=== PATIENT | female | born 1975 | race Caucasian/White ===

== ENCOUNTER → 2017-11-25 | Outpatient (REF) | payer BC, OTHER | LOC: M LAB REF 19:45 | DX: J11.1 Influenza due to unidentified influenza virus with other respiratory manifestations (principal) | CPT/HCPCS: 87804 ==

== ENCOUNTER → 2021-12-07 | Outpatient (CLI) | payer OTHER ==
[2021-12-07 11:02] LABS: ALBUMIN 3.8 GM/DL (3.2-5.2); ALT/SGPT 17 U/L (12-78); BILIRUBIN,TOTAL 0.8 MG/DL (0.2-1.0); BLOOD UREA NITROGEN 7 MG/DL (7-18); CARBON DIOXIDE LEVEL 30 MEQ/L (21-32); CHLORIDE LEVEL 106 MEQ/L (98-107); CHOLESTEROL LEVEL 146 MG/DL (<200); FREE T4 0.58 NG/DL (0.76-1.46); GLOMERULAR FILTRATION RATE > 60.0 (>58); GLUCOSE, FASTING 96 MG/DL (70-100); HDL CHOLESTEROL 41 MG/DL (>40); LDL CHOLESTEROL 81 MG/DL (<100); NON-HDL-C 105 MG/DL; POTASSIUM SERUM 3.9 MEQ/L (3.5-5.1); SODIUM LEVEL 139 MEQ/L (136-145); TOTAL PROTEIN 7.5 GM/DL (6.4-8.2); TRIGLYCERIDES LEVEL 120 MG/DL (<150)
[2021-12-07 11:28] LABS: HEMOGLOBIN A1c 5.1 %
== END ==
LOC: M WUC 08:14
PROVIDERS: ATTEND Student in an Organized Health Care Education/Training Program
DX: Z00.00 Encounter for general adult medical examination without abnormal findings (principal); Z13.1 Encounter for screening for diabetes mellitus; E03.9 Hypothyroidism, unspecified

== ENCOUNTER → 2022-05-15 | Outpatient (REF) | payer OTHER | LOC: M SFHCLERA 11:28 | PROVIDERS: ATTEND Student in an Organized Health Care Education/Training Program | DX: Z12.4 Encounter for screening for malignant neoplasm of cervix (principal) ==

== ENCOUNTER → 2023-03-14 | Outpatient (CLI) | payer OTHER ==
[2023-03-14 18:06] LABS: BASO # 0.1 10^3/uL (0.0-0.2); BASO % 0.6 % (0.0-1.0); EOS # 0.3 10^3/uL (0.0-0.5); EOS % 3.7 % (0.0-3.0); HEMATOCRIT 27.8 % (36.0-47.0); HEMOGLOBIN 9.9 g/dl (12.0-15.5); LYMPH # 2.4 10^3/uL (1.5-5.0); LYMPH % 30.2 % (24.0-44.0); MEAN CORPUSCULAR HEMOGLOBIN 43.8 pg (27.0-33.0); MEAN CORPUSCULAR HGB CONC 35.6 g/dl (32.0-36.5); MONO # 0.4 10^3/uL (0.0-0.8); MONO % 5.1 % (2.0-8.0); NEUTROPHILS # 4.9 10^3/uL (1.5-8.5); NEUTROPHILS % 60.2 % (36.0-66.0); PLATELET COUNT, AUTOMATED 265 10^3/uL (150-450); RED BLOOD COUNT 2.26 10^6/uL (4.00-5.40); WHITE BLOOD COUNT 8.1 10^3/uL (4.0-10.0)
[2023-03-14 18:41] LABS: THYROID STIMULATING HORMONE 22.358 uIU/ML (0.55-4.78); TOTAL 25(OH) VITAMIN D 23.6 NG/ML (20.0-100.0)
[2023-03-14 18:42] LABS: VITAMIN B12 LEVEL 136 PG/ML (211-911)
[2023-03-14 18:43] LABS: ALBUMIN 3.7 G/DL (3.2-5.2); ALKALINE PHOSPHATASE 78 U/L (46-116); ALT/SGPT 21 U/L (7.0-40); AST/SGOT 42 U/L (<34); BILIRUBIN,TOTAL 1.2 MG/DL (0.3-1.2); BLOOD UREA NITROGEN 12 MG/DL (9-23); CALCIUM LEVEL 8.8 MG/DL (8.5-10.1); CARBON DIOXIDE LEVEL 28 MMOL/L (20-31); CHLORIDE LEVEL 104 MMOL/L (98-107); CREATININE FOR GFR 0.71 MG/DL (0.55-1.30); FREE T4 0.68 NG/DL (0.89-1.76); GLOMERULAR FILTRATION RATE > 60.0 (>58); GLUCOSE, FASTING 80 MG/DL (60-100); POTASSIUM SERUM 4.5 MMOL/L (3.5-5.1); SODIUM LEVEL 138 MMOL/L (136-145); TOTAL PROTEIN 7.1 G/DL (5.7-8.2)
== END ==
LOC: M PLAIMG 16:26
PROVIDERS: ATTEND Physician Assistant
DX: M50.322 Other cervical disc degeneration at C5-C6 level (principal); M47.816 Spondylosis without myelopathy or radiculopathy, lumbar region; M54.50 Low back pain, unspecified; R20.2 Paresthesia of skin; E03.9 Hypothyroidism, unspecified; E55.9 Vitamin D deficiency, unspecified

== ENCOUNTER → 2023-04-18 | Outpatient (REF) | payer OTHER ==
[2023-04-18 17:29] LABS: BASO # 0.1 10^3/uL (0.0-0.2); EOS # 0.2 10^3/uL (0.0-0.5); EOS % 4.1 % (0.0-3.0); HEMATOCRIT 34.9 % (36.0-47.0); HEMOGLOBIN 11.3 g/dl (12.0-15.5); LYMPH # 2.3 10^3/uL (1.5-5.0); LYMPH % 39.2 % (24.0-44.0); MEAN CORPUSCULAR HEMOGLOBIN 32.8 pg (27.0-33.0); MEAN CORPUSCULAR HGB CONC 32.4 g/dl (32.0-36.5); MEAN CORPUSCULAR VOLUME 101.5 fl (80.0-96.0); MONO # 0.6 10^3/uL (0.0-0.8); MONO % 10.3 % (2.0-8.0); NEUTROPHILS # 2.6 10^3/uL (1.5-8.5); NEUTROPHILS % 45.1 % (36.0-66.0); PLATELET COUNT, AUTOMATED 349 10^3/uL (150-450); RED BLOOD COUNT 3.44 10^6/uL (4.00-5.40); WHITE BLOOD COUNT 5.8 10^3/uL (4.0-10.0)
[2023-04-18 17:51] LABS: BLOOD UREA NITROGEN 10 MG/DL (9-23); CALCIUM LEVEL 8.9 MG/DL (8.5-10.1); CARBON DIOXIDE LEVEL 28 MMOL/L (20-31); CHLORIDE LEVEL 105 MMOL/L (98-107); CREATININE FOR GFR 0.74 MG/DL (0.55-1.30); GLOMERULAR FILTRATION RATE > 60.0 (>58); GLUCOSE, FASTING 92 MG/DL (60-100); POTASSIUM SERUM 4.6 MMOL/L (3.5-5.1); SODIUM LEVEL 138 MMOL/L (136-145)
[2023-04-18 17:52] LABS: VITAMIN B12 LEVEL 1008 PG/ML (211-911)
[2023-04-18 17:53] LABS: FOLATE 7.7 NG/ML (>5.4); FREE T4 1.42 NG/DL (0.89-1.76); THYROID STIMULATING HORMONE 8.805 uIU/ML (0.55-4.78)
[2023-04-23 15:08] LABS: Methylmalonic Acid 189 nmol/L (0-378)
== END ==
LOC: M SFHCLERA 13:39
PROVIDERS: ATTEND Student in an Organized Health Care Education/Training Program
DX: D51.9 Vitamin B12 deficiency anemia, unspecified (principal); D50.9 Iron deficiency anemia, unspecified

== ENCOUNTER 2023-05-27 00:29 | Inpatient (IN) | payer MEDICAID, OTHER ==
[~2023-05-27] VITALS: Ht 170.2 cm; Wt 77.1 kg
[~2023-05-27 00:29] MED LIST: CYAN100049 PO; SYNT175T2 PO
[2023-05-27] MEDS ORDERED: HOME MED LIST COMPLETE! XX SCH (08:50)
[2023-05-27] MEDS ORDERED: MOM 30ML SUSPENSION UDC PO PRN (14:35)
[2023-05-27] MEDS ORDERED: diphenhydrAMINE 25MG CAP PO PRN (14:35)
[2023-05-27] MEDS ORDERED: traZODone 50 MG TAB PO PRN (14:35)
[2023-05-27] MEDS ORDERED: IBUPROFEN 400MG TAB PO PRN (14:35)
[2023-05-27] MEDS ORDERED: MAALOX 30 ML SUSP *UDC PO PRN (14:35)
[2023-05-27 18:56] VITALS: BP 116/59; TEMP 97.6; O2SAT 97
[2023-05-28] MEDS ORDERED: UNRESOLVED CLARIFICATION ENTRY XX SCH (00:01)
[2023-05-28] MEDS ORDERED: UNRESOLVED PATIENT OWN MED ORDER XX SCH (00:01)
[2023-05-28 06:24] VITALS: BP 113/55; TEMP 98; O2SAT 73
[2023-05-28] MEDS: LEVOTHYROXINE 100MCG TABLET (0.1MG) PO SCH (06:27)
[2023-05-28] MEDS: LEVOTHYROXINE 75MCG TABLET (0.075MG) PO SCH (06:28)
[2023-05-28] MEDS ORDERED: ENTER DRUG NAME HERE (PATIENT'S OWN MED) PO SCH (09:00)
[2023-05-28] MEDS: FLUoxetine 10 MG CAP PO SCH (09:21)
[2023-05-28] MEDS: CYANOCOBALAMIN 500 MCG TAB PO SCH (09:21)
[2023-05-28] MEDS ORDERED: ISOVUE-370 76% 100ML VIAL As Ordered ONE (16:21)
[2023-05-28 17:47] VITALS: BP 127/66; TEMP 97.3; O2SAT 100
[2023-05-28] MEDS: OLANZapine 2.5MG TABLET PO SCH (21:00)
[2023-05-29] MEDS: LEVOTHYROXINE 75MCG TABLET (0.075MG) PO SCH (06:35)
[2023-05-29] MEDS: LEVOTHYROXINE 100MCG TABLET (0.1MG) PO SCH (06:35)
[2023-05-29 06:51] VITALS: BP 123/58; TEMP 98.5; O2SAT 99
[2023-05-29] MEDS: FLUoxetine 10 MG CAP PO SCH (09:36)
[2023-05-29] MEDS: CYANOCOBALAMIN 500 MCG TAB PO SCH (09:37)
[2023-05-29] MEDS: ACETAMINOPHEN TAB 650MG DOSE (2X325MG) PO PRN ×2 (12:29→22:34)
[2023-05-29] MEDS: NYSTATIN 100,000 UNITS/GM TOPICAL PWD 15GM TOP SCH ×2 (14:35→22:44)
[2023-05-29] MEDS: IBUPROFEN 600MG TAB PO PRN (17:01)
[2023-05-29 17:59] VITALS: BP 107/71; TEMP 97.2; O2SAT 100
[2023-05-29] MEDS: OLANZapine 2.5MG TABLET PO SCH (21:00)
[2023-05-30] MEDS: LEVOTHYROXINE 75MCG TABLET (0.075MG) PO SCH (06:09)
[2023-05-30] MEDS: LEVOTHYROXINE 100MCG TABLET (0.1MG) PO SCH (06:09)
[2023-05-30 06:58] VITALS: BP 148/65; TEMP 98.3; O2SAT 98
[2023-05-30] MEDS ORDERED: FLUoxetine 20MG CAP PO SCH (09:00)
[2023-05-30] MEDS: CYANOCOBALAMIN 500 MCG TAB PO SCH (09:31)
[2023-05-30] MEDS: NYSTATIN 100,000 UNITS/GM TOPICAL PWD 15GM TOP SCH (09:32)
[2023-05-30] MEDS: IBUPROFEN 600MG TAB PO PRN (09:32)
[2023-05-30] MEDS ORDERED: FLUO20CA22 PO (10:30)
== END 2023-05-30 15:00 | disposition home or self-care (01) | DRG 754 ==
LOC: M ED 00:29 → M ED INP 14:34 → M PSY 18:31
PROVIDERS: ADMIT Student in an Organized Health Care Education/Training Program; ATTEND Student in an Organized Health Care Education/Training Program
DX: F34.1 Dysthymic disorder (principal); F32.A Depression, unspecified; E53.8 Deficiency of other specified B group vitamins; E03.9 Hypothyroidism, unspecified; F17.210 Nicotine dependence, cigarettes, uncomplicated; D64.9 Anemia, unspecified; K08.89 Other specified disorders of teeth and supporting structures; F41.9 Anxiety disorder, unspecified; Z90.49 Acquired absence of other specified parts of digestive tract; Z71.6 Tobacco abuse counseling; Z20.822 Contact with and (suspected) exposure to COVID-19; Z79.890 Hormone replacement therapy; Z79.899 Other long term (current) drug therapy; Z88.2 Allergy status to sulfonamides

== ENCOUNTER 2023-06-04 08:22 | Outpatient (CLI) | payer OTHER ==
[~2023-06-04] VITALS: Ht 170.2 cm; Wt 75.9 kg
[~2023-06-04 08:22] MED LIST changes: +ALBUTEROL SULFATE 2.5MG/0.5ML INH NEB SOLN INH PRN; +EPINEPHrine INJ 1 MG/ML 1ML AMP IM PRN; +FLUO20CA22 PO; +diphenhydrAMINE 50MG/ML VIAL IV PRN; +methylPREDNISolone 125MG 2ML VIAL IV PRN
[2023-06-04 08:30] VITALS: BP 121/63; O2SAT 98
[2023-06-04] MEDS ORDERED: IRON SUCROSE 200 MG in NS 100 ML OVER 1 HR IV ONE (08:30)
[2023-06-04] MEDS ORDERED: NS 1,000 ML IV SCH (08:30)
[2023-06-04 10:40] VITALS: BP 123/75; O2SAT 97
== END 2023-06-04 10:45 | disposition home or self-care (01) ==
LOC: M INFU 08:22
PROVIDERS: ATTEND Internal Medicine Hematology
DX: D50.9 Iron deficiency anemia, unspecified (principal); Z88.2 Allergy status to sulfonamides
CPT/HCPCS: 96365; J1756

== ENCOUNTER 2023-06-11 12:15 | Outpatient (CLI) | payer OTHER ==
[~2023-06-11] VITALS: Ht 170.2 cm; Wt 75.9 kg
[2023-06-11 12:15] VITALS: BP 147/75; O2SAT 97
[2023-06-11] MEDS ORDERED: NS 1,000 ML IV SCH (12:55)
[2023-06-11] MEDS ORDERED: IRON SUCROSE 200 MG in NS 100 ML OVER 1 HR IV ONE (12:55)
[2023-06-11 14:45] VITALS: BP 125/72; O2SAT 99
== END 2023-06-11 14:45 | disposition home or self-care (01) ==
LOC: M INFU 12:15
PROVIDERS: ATTEND Internal Medicine Hematology
DX: D50.9 Iron deficiency anemia, unspecified (principal); Z88.2 Allergy status to sulfonamides
CPT/HCPCS: 96365; J1756

== ENCOUNTER 2023-06-18 09:20 | Outpatient (CLI) | payer OTHER ==
[~2023-06-18] VITALS: Ht 170.2 cm; Wt 75.9 kg
[2023-06-18 09:20] VITALS: BP 130/73; O2SAT 99
[2023-06-18] MEDS ORDERED: NS 1,000 ML IV SCH (09:30)
[2023-06-18] MEDS ORDERED: IRON SUCROSE 200 MG in NS 100 ML OVER 1 HR IV ONE (09:30)
[2023-06-18 11:25] VITALS: BP 143/70; O2SAT 100
== END 2023-06-18 11:25 ==
LOC: M INFU 09:20
PROVIDERS: ATTEND Internal Medicine Hematology
DX: D50.9 Iron deficiency anemia, unspecified (principal); Z88.2 Allergy status to sulfonamides
CPT/HCPCS: 96365; 96366; J1756

== ENCOUNTER → 2023-07-15 | Outpatient (CLI) | payer OTHER ==
[~2023-07-15] MED LIST changes: -ALBUTEROL SULFATE 2.5MG/0.5ML INH NEB SOLN INH PRN; -EPINEPHrine INJ 1 MG/ML 1ML AMP IM PRN; -diphenhydrAMINE 50MG/ML VIAL IV PRN; -methylPREDNISolone 125MG 2ML VIAL IV PRN
[2023-07-15 19:56] LABS: FREE T4 1.59 NG/DL (0.89-1.76); THYROID STIMULATING HORMONE 0.232 uIU/ML (0.55-4.78)
== END ==
LOC: M PLALAB 15:30
PROVIDERS: ATTEND Student in an Organized Health Care Education/Training Program
DX: E03.9 Hypothyroidism, unspecified (principal)

== ENCOUNTER → 2023-07-15 | Outpatient (CLI) | payer OTHER ==
[2023-07-15 19:49] LABS: PERCENT SATURATION 26.9 % (13.2-45.0)
[2023-07-15 19:53] LABS: THYROID STIMULATING HORMONE 0.225 uIU/ML (0.55-4.78)
== END ==
LOC: M PLALAB 15:28
PROVIDERS: ATTEND Internal Medicine Hematology
DX: E61.1 Iron deficiency (principal)

== ENCOUNTER → 2023-10-16 | Outpatient (CLI) | payer OTHER ==
[~2023-10-16] MED LIST changes: +CLON0.5T17 PO; +CYAN1000VL IM; +FLUO40CA PO; +LATU80TA2 PO
[2023-10-16 18:05] LABS: FREE T4 1.47 NG/DL (0.89-1.76)
[2023-10-16 18:06] LABS: THYROID STIMULATING HORMONE 10.694 uIU/ML (0.55-4.78)
== END ==
LOC: M PLALAB 15:02
PROVIDERS: ATTEND Physician Assistant
DX: E03.9 Hypothyroidism, unspecified (principal)

== ENCOUNTER → 2023-10-16 | Outpatient (CLI) | payer OTHER ==
[2023-10-16 17:40] LABS: HEMATOCRIT 38.1 % (36.0-47.0); HEMOGLOBIN 12.5 g/dl (12.0-15.5); MEAN CORPUSCULAR HEMOGLOBIN 31.6 pg (27.0-33.0); MEAN CORPUSCULAR HGB CONC 32.8 g/dl (32.0-36.5); MEAN CORPUSCULAR VOLUME 96.5 fl (80.0-96.0); PLATELET COUNT, AUTOMATED 345 10^3/uL (150-450); RED BLOOD COUNT 3.95 10^6/uL (4.00-5.40); WHITE BLOOD COUNT 6.7 10^3/uL (4.0-10.0)
[2023-10-16 18:04] LABS: FREE T4 1.42 NG/DL (0.89-1.76)
[2023-10-16 18:05] LABS: FERRITIN 17.6 NG/ML (7.3-270.7); THYROID STIMULATING HORMONE 11.297 uIU/ML (0.55-4.78)
== END ==
LOC: M PLALAB 15:00
PROVIDERS: ATTEND Internal Medicine Hematology
DX: E53.8 Deficiency of other specified B group vitamins (principal); E03.9 Hypothyroidism, unspecified; E61.1 Iron deficiency

== ENCOUNTER → 2023-10-20 | Outpatient (CLI) | payer OTHER ==
[~2023-10-20] MED LIST changes: +LIDOCAINE 1% MDV 20ML VIAL As Ordered ONE
[2023-10-20 12:45] VITALS: BP 115/56; TEMP 98.6; O2SAT 99
== END ==
LOC: M IRPRO 12:27
PROVIDERS: ATTEND Otolaryngology
DX: D37.030 Neoplasm of uncertain behavior of the parotid salivary glands (principal)

== ENCOUNTER 2023-11-14 07:10 | Outpatient (CLI) | payer OTHER ==
[~2023-11-14] VITALS: Ht 170.2 cm; Wt 75.0 kg
[2023-11-14 07:10] VITALS: BP 122/59; O2SAT 97
[~2023-11-14 07:10] MED LIST changes: +ALBUTEROL SULFATE 2.5MG/0.5ML INH NEB SOLN INH PRN; +EPINEPHrine INJ 1 MG/ML 1ML AMP IM PRN; -LIDOCAINE 1% MDV 20ML VIAL As Ordered ONE; +NS 1,000 ML IV SCH; +diphenhydrAMINE 50MG/ML VIAL IV PRN; +methylPREDNISolone 125MG 2ML VIAL IV PRN
[2023-11-14] MEDS: IRON SUCROSE 250 MG in NS 237.5 ML IV ONE (07:32)
[2023-11-14 09:03] VITALS: BP 119/59; O2SAT 98
== END 2023-11-14 09:05 | disposition home or self-care (01) ==
LOC: M INFU 07:10
PROVIDERS: ATTEND Internal Medicine Hematology
DX: D50.9 Iron deficiency anemia, unspecified (principal); Z88.2 Allergy status to sulfonamides
CPT/HCPCS: 96365; J1756

== ENCOUNTER 2023-11-21 11:41 | Outpatient (CLI) | payer OTHER ==
[~2023-11-21] VITALS: Ht 170.2 cm; Wt 75.0 kg
[~2023-11-21 11:41] MED LIST changes: +IRON SUCROSE 250 MG in NS 237.5 ML IV ONE
[2023-11-21 12:00] VITALS: BP 126/60; O2SAT 100
[2023-11-21 14:50] VITALS: BP 96/58; O2SAT 100
== END 2023-11-21 14:50 | disposition home or self-care (01) ==
LOC: M INFU 11:41
PROVIDERS: ATTEND Internal Medicine Hematology
DX: D50.9 Iron deficiency anemia, unspecified (principal); Z88.2 Allergy status to sulfonamides
CPT/HCPCS: 96365; J1756

== ENCOUNTER 2023-12-01 12:45 | Outpatient (CLI) | payer OTHER ==
[~2023-12-01] VITALS: Ht 170.2 cm; Wt 72.7 kg
[~2023-12-01 12:45] MED LIST changes: -IRON SUCROSE 250 MG in NS 237.5 ML IV ONE
[2023-12-01 13:00] VITALS: BP 104/53; O2SAT 100
[2023-12-01] MEDS ORDERED: IRON SUCROSE 250 MG in NS 237.5 ML IV ONE (13:00)
[2023-12-01 14:50] VITALS: BP 98/47; O2SAT 98
== END 2023-12-01 14:50 | disposition home or self-care (01) ==
LOC: M INFU 12:45
PROVIDERS: ATTEND Internal Medicine Hematology
DX: D50.9 Iron deficiency anemia, unspecified (principal); Z88.2 Allergy status to sulfonamides
CPT/HCPCS: 96365; J1756

== ENCOUNTER 2023-12-15 05:51 | Inpatient (IN) | payer MEDICAID, OTHER ==
[~2023-12-15] VITALS: Ht 170.2 cm; Wt 72.7 kg
[~2023-12-15 05:51] MED LIST changes: -ALBUTEROL SULFATE 2.5MG/0.5ML INH NEB SOLN INH PRN; +CYANOCOBALAMIN 1000 MCG/ML As Ordered ONE; -EPINEPHrine INJ 1 MG/ML 1ML AMP IM PRN; -NS 1,000 ML IV SCH; -diphenhydrAMINE 50MG/ML VIAL IV PRN; -methylPREDNISolone 125MG 2ML VIAL IV PRN
[2023-12-15 06:49] LABS: BASO % 0.5 % (0.0-1.0); EOS # 0.2 10^3/uL (0.0-0.5); EOS % 2.7 % (0.0-3.0); HEMATOCRIT 42.4 % (36.0-47.0); HEMOGLOBIN 14.1 g/dl (12.0-15.5); LYMPH # 1.8 10^3/uL (1.5-5.0); LYMPH % 21.8 % (24.0-44.0); MEAN CORPUSCULAR HEMOGLOBIN 31.1 pg (27.0-33.0); MEAN CORPUSCULAR HGB CONC 33.3 g/dl (32.0-36.5); MEAN CORPUSCULAR VOLUME 93.4 fl (80.0-96.0); MONO # 0.7 10^3/uL (0.0-0.8); MONO % 8.2 % (2.0-8.0); NEUTROPHILS # 5.3 10^3/uL (1.5-8.5); NEUTROPHILS % 66.4 % (36.0-66.0); PLATELET COUNT, AUTOMATED 311 10^3/uL (150-450); RED BLOOD COUNT 4.54 10^6/uL (4.00-5.40)
[2023-12-15 07:17] LABS: ETHYL ALCOHOL (ETHANOL) 0.004 % (0.000-0.010)
[2023-12-15 07:19] LABS: ALBUMIN 3.7 G/DL (3.2-5.2); ALKALINE PHOSPHATASE 106 U/L (46-116); ALT/SGPT 25 U/L (7.0-40); AST/SGOT 17 U/L (<34); BILIRUBIN,DIRECT 0.2 MG/DL (<0.4); BILIRUBIN,TOTAL 0.7 MG/DL (0.3-1.2); BLOOD UREA NITROGEN 9 MG/DL (9-23); CALCIUM LEVEL 9.3 MG/DL (8.5-10.1); CARBON DIOXIDE LEVEL 25 MMOL/L (20-31); CHLORIDE LEVEL 104 MMOL/L (98-107); CREATININE FOR GFR 0.71 MG/DL (0.55-1.30); GLOMERULAR FILTRATION RATE > 60.0 (>58); GLUCOSE, FASTING 95 MG/DL (60-100); POTASSIUM SERUM 3.8 MMOL/L (3.5-5.1); SALICYLATE LEVEL < 3.0 MG/DL (<30); SODIUM LEVEL 138 MMOL/L (136-145); TOTAL PROTEIN 7.2 G/DL (5.7-8.2)
[2023-12-15 07:21] LABS: THYROID STIMULATING HORMONE 1.702 uIU/ML (0.55-4.78)
[2023-12-15 07:26] LABS: FOLATE 8.43 NG/ML (>5.4)
[2023-12-15 07:36] LABS: HCG, SERUM QUALITATIVE NEGATIVE (NEGATIVE)
[2023-12-15] MEDS ORDERED: LEVO2TA PO (09:23)
[2023-12-15] MEDS ORDERED: CLON0.5T2 PO ×2 (09:23→10:43)
[2023-12-15] MEDS ORDERED: LURA40TA2 PO (09:23)
[2023-12-15 09:54] LABS: BARBITURATES URINE NEGATIVE (NEGATIVE); BENZODIAZEPINES URINE NEGATIVE (NEGATIVE); COCAINE METABOLITE URINE NEGATIVE (NEGATIVE)
[2023-12-15 09:55] LABS: AMPHETAMINES LEVEL URINE POSITIVE (NEGATIVE); CANNABINOIDS URINE POSITIVE (NEGATIVE); METHADONE URINE NEGATIVE (NEGATIVE); OPIATES URINE NEGATIVE (NEGATIVE); PHENCYCLIDINE URINE NEGATIVE (NEGATIVE)
[2023-12-15] MEDS ORDERED: HOME MED LIST COMPLETE! XX SCH (10:20)
[2023-12-15] MEDS: clonazePAM 0.5 MG TAB PO PRN (10:47)
[2023-12-15] MEDS: LEVOTHYROXINE 100MCG TABLET (0.1MG) PO SCH (10:47)
[2023-12-15] MEDS: FLUoxetine 20MG CAP PO SCH (10:47)
[2023-12-15] MEDS ORDERED: OLANZapine ORAL DISINTEGRATING TAB 5MG PO PRN (14:25)
[2023-12-15] MEDS ORDERED: MAALOX 30 ML SUSP *UDC PO PRN (14:25)
[2023-12-15] MEDS ORDERED: IBUPROFEN 400MG TAB PO PRN (14:25)
[2023-12-15] MEDS ORDERED: diphenhydrAMINE 25MG CAP PO PRN (14:25)
[2023-12-15] MEDS ORDERED: MOM 30ML SUSPENSION UDC PO PRN (14:25)
[2023-12-15] MEDS ORDERED: ACETAMINOPHEN TAB 650MG DOSE (2X325MG) PO PRN (14:25)
[2023-12-15] MEDS ORDERED: traZODone 50 MG TAB PO PRN (14:25)
[2023-12-15] MEDS ORDERED: LURASIDONE HCL 40MG TAB (LATUDA) PO SCH (17:00)
[2023-12-15 17:51] VITALS: BP 109/58; TEMP 98.3; O2SAT 98
[2023-12-16 06:02] VITALS: BP 109/51; TEMP 98.9; O2SAT 98
[2023-12-16] MEDS: LEVOTHYROXINE 100MCG TABLET (0.1MG) PO SCH (09:40)
[2023-12-16] MEDS: FLUoxetine 20MG CAP PO SCH (09:45)
[2023-12-16] MEDS: clonazePAM 0.5 MG TAB PO PRN (11:54)
[2023-12-16] MEDS: clonazePAM 0.5 MG TAB PO SCH (18:02)
[2023-12-16] MEDS: LURASIDONE HCL 40MG TAB (LATUDA) PO SCH (18:02)
[2023-12-16 18:25] VITALS: BP 120/71; TEMP 97.8; O2SAT 98
[2023-12-17 06:38] VITALS: BP 126/61; TEMP 98.3; O2SAT 98
== END 2023-12-17 11:39 | disposition home or self-care (01) | DRG 751 ==
LOC: M ED 05:51 → M ED INP 14:21 → M PSY 16:46
PROVIDERS: ADMIT Student in an Organized Health Care Education/Training Program; ATTEND Student in an Organized Health Care Education/Training Program
DX: F29 Unspecified psychosis not due to a substance or known physiological condition (principal); E03.9 Hypothyroidism, unspecified; D51.0 Vitamin B12 deficiency anemia due to intrinsic factor deficiency; F17.200 Nicotine dependence, unspecified, uncomplicated; Z79.899 Other long term (current) drug therapy; Z88.2 Allergy status to sulfonamides; Z20.822 Contact with and (suspected) exposure to COVID-19; Z79.890 Hormone replacement therapy; Z90.10 Acquired absence of unspecified breast and nipple; Z85.3 Personal history of malignant neoplasm of breast

== ENCOUNTER → 2024-02-03 | Outpatient (CLI) | payer OTHER ==
[~2024-02-03] MED LIST changes: +CLON0.5T2 PO; -CYANOCOBALAMIN 1000 MCG/ML As Ordered ONE; +LEVO2TA PO; +LURA40TA2 PO
== END ==
LOC: M RAD 15:25
PROVIDERS: ATTEND Otolaryngology
DX: E04.1 Nontoxic single thyroid nodule (principal)

== ENCOUNTER → 2024-02-20 | Outpatient (CLI) | payer OTHER ==
[2024-02-20 18:47] LABS: BASO # 0.1 10^3/uL (0.0-0.2); BASO % 0.9 % (0.0-1.0); EOS # 0.3 10^3/uL (0.0-0.5); EOS % 5.1 % (0.0-3.0); HEMATOCRIT 41.7 % (36.0-47.0); HEMOGLOBIN 13.6 g/dl (12.0-15.5); LYMPH # 2.6 10^3/uL (1.5-5.0); LYMPH % 38.6 % (24.0-44.0); MEAN CORPUSCULAR HEMOGLOBIN 31.6 pg (27.0-33.0); MEAN CORPUSCULAR HGB CONC 32.6 g/dl (32.0-36.5); MEAN CORPUSCULAR VOLUME 96.8 fl (80.0-96.0); MONO # 0.6 10^3/uL (0.0-0.8); MONO % 8.9 % (2.0-8.0); NEUTROPHILS # 3.1 10^3/uL (1.5-8.5); NEUTROPHILS % 46.3 % (36.0-66.0); PLATELET COUNT, AUTOMATED 268 10^3/uL (150-450); RED BLOOD COUNT 4.31 10^6/uL (4.00-5.40); WHITE BLOOD COUNT 6.7 10^3/uL (4.0-10.0)
[2024-02-20 19:10] LABS: FERRITIN 30.7 NG/ML (7.3-270.7)
== END ==
LOC: M PLALAB 15:52
PROVIDERS: ATTEND Internal Medicine Hematology
DX: D64.9 Anemia, unspecified (principal)

== ENCOUNTER → 2024-03-05 | Outpatient (CLI) | payer OTHER ==
[~2024-03-05] MED LIST changes: +PROHANCE 279.3MG/ML 15ML VIAL As Ordered ONE
== END ==
LOC: M RAD 11:35
PROVIDERS: ATTEND Otolaryngology
DX: D37.030 Neoplasm of uncertain behavior of the parotid salivary glands (principal)
CPT/HCPCS: 70543; 76536; A9576

== ENCOUNTER 2024-03-12 14:35 | Outpatient (CLI) | payer OTHER ==
[~2024-03-12] VITALS: Ht 170.2 cm; Wt 75.0 kg
[~2024-03-12 14:35] MED LIST changes: +ALBUTEROL SULFATE 2.5MG/0.5ML INH NEB SOLN INH PRN; +EPINEPHrine INJ 1 MG/ML 1ML AMP IM PRN; +NS 1,000 ML IV SCH; -PROHANCE 279.3MG/ML 15ML VIAL As Ordered ONE; +diphenhydrAMINE 50MG/ML VIAL IV PRN; +methylPREDNISolone 125MG 2ML VIAL IV PRN
[2024-03-12 14:40] VITALS: BP 126/76; O2SAT 100
[2024-03-12] MEDS: IRON SUCROSE 200 MG in NS 100 ML IV ONE (15:00)
[2024-03-12 16:30] VITALS: BP 125/68; O2SAT 100
== END 2024-03-12 16:30 | disposition home or self-care (01) ==
LOC: M INFU 14:35
PROVIDERS: ATTEND Internal Medicine Hematology
DX: Z80.9 Family history of malignant neoplasm, unspecified (principal); Z88.2 Allergy status to sulfonamides
CPT/HCPCS: 96365; J1756

== ENCOUNTER 2024-03-19 15:00 | Outpatient (CLI) | payer OTHER ==
[2024-03-19 15:00] VITALS: BP 162/83; O2SAT 95
[2024-03-19] MEDS: IRON SUCROSE 200 MG in NS 100 ML IV ONE (15:01)
[2024-03-19 16:08] VITALS: BP 143/87; O2SAT 98
[2024-03-20] MEDS ORDERED: LAMO25TA4 PO (01:18)
== END 2024-03-19 16:08 | disposition home or self-care (01) ==
LOC: M INFU 15:00
PROVIDERS: ATTEND Internal Medicine Hematology
DX: D50.9 Iron deficiency anemia, unspecified (principal); Z88.2 Allergy status to sulfonamides
CPT/HCPCS: 96365; J1756

== ENCOUNTER 2024-03-19 23:40 | Emergency (ER) | payer OTHER ==
[~2024-03-19 23:40] MED LIST changes: -ALBUTEROL SULFATE 2.5MG/0.5ML INH NEB SOLN INH PRN; -EPINEPHrine INJ 1 MG/ML 1ML AMP IM PRN; -NS 1,000 ML IV SCH; -diphenhydrAMINE 50MG/ML VIAL IV PRN; -methylPREDNISolone 125MG 2ML VIAL IV PRN
[2024-03-20 00:31] LABS: BARBITURATES URINE NEGATIVE (NEGATIVE); BENZODIAZEPINES URINE NEGATIVE (NEGATIVE); METHADONE URINE NEGATIVE (NEGATIVE); OPIATES URINE NEGATIVE (NEGATIVE); PHENCYCLIDINE URINE NEGATIVE (NEGATIVE)
[2024-03-20 00:37] LABS: AMPHETAMINES LEVEL URINE POSITIVE (NEGATIVE); CANNABINOIDS URINE POSITIVE (NEGATIVE); COCAINE METABOLITE URINE POSITIVE (NEGATIVE)
[2024-03-20 00:43] LABS: HEMATOCRIT 39.3 % (36.0-47.0); HEMOGLOBIN 13.7 g/dl (12.0-15.5); MEAN CORPUSCULAR HEMOGLOBIN 32.8 pg (27.0-33.0); MEAN CORPUSCULAR HGB CONC 34.9 g/dl (32.0-36.5); PLATELET COUNT, AUTOMATED 254 10^3/uL (150-450); RED BLOOD COUNT 4.18 10^6/uL (4.00-5.40); WHITE BLOOD COUNT 9.5 10^3/uL (4.0-10.0)
[2024-03-20 01:01] LABS: ETHYL ALCOHOL (ETHANOL) < 0.003 % (0.000-0.010)
[2024-03-20 01:02] LABS: SALICYLATE LEVEL < 3.0 MG/DL (<30)
[2024-03-20 01:03] LABS: ALBUMIN 4.1 G/DL (3.2-5.2); ALKALINE PHOSPHATASE 76 U/L (46-116); ALT/SGPT 15 U/L (7.0-40); AST/SGOT 23 U/L (<34); BILIRUBIN,DIRECT 0.7 MG/DL (<0.4); BILIRUBIN,TOTAL 1.9 MG/DL (0.3-1.2); BLOOD UREA NITROGEN 11 MG/DL (9-23); CALCIUM LEVEL 9.4 MG/DL (8.5-10.1); CARBON DIOXIDE LEVEL 24 MMOL/L (20-31); CHLORIDE LEVEL 106 MMOL/L (98-107); CREATININE FOR GFR 0.78 MG/DL (0.55-1.30); GLOMERULAR FILTRATION RATE > 60.0 (>58); GLUCOSE, FASTING 96 MG/DL (60-100); POTASSIUM SERUM 3.4 MMOL/L (3.5-5.1); SODIUM LEVEL 139 MMOL/L (136-145); TOTAL PROTEIN 7.2 G/DL (5.7-8.2)
[2024-03-20 01:05] LABS: THYROID STIMULATING HORMONE 2.809 uIU/ML (0.55-4.78)
[2024-03-20 01:17] LABS: HCG, SERUM QUALITATIVE NEGATIVE (NEGATIVE)
[2024-03-20] MEDS ORDERED: LAMO25TA4 PO (01:18)
[2024-03-20] MEDS ORDERED: HOME MED LIST COMPLETE! XX SCH (01:20)
[2024-03-20] MEDS: LORazepam 2 MG/ML 1ML VIAL IM ONE (05:31)
[2024-03-20] MEDS: HALOPERIDOL LACTATE 5MG/ML VIAL IM ONE (05:31)
[2024-03-20] MEDS: diphenhydrAMINE 50MG/ML VIAL IM ONE (05:32)
[2024-03-21 02:34] VITALS: BP 119/55; TEMP 97.9; O2SAT 98
[2024-03-21] MEDS ORDERED: LEVOTHYROXINE 100MCG TABLET (0.1MG) PO SCH (06:00)
== END 2024-03-21 02:42 | disposition short-term general hospital (02) ==
LOC: M ED 23:40
DX: F19.14 Other psychoactive substance abuse with psychoactive substance-induced mood disorder (principal)
CPT/HCPCS: 80048; 80076; 80143; 80307; 82077; 84443; 84703; 85027; 87635; 93005; 96372; 99285; J1200; J1630; J2060

== ENCOUNTER → 2024-05-25 | Outpatient (CLI) | payer OTHER ==
[~2024-05-25] MED LIST changes: +FLUO-365 PO; -FLUO20CA22 PO; +LAMO25TA4 PO
[2024-05-25 18:11] LABS: BASO # 0.1 10^3/uL (0.0-0.2); BASO % 0.8 % (0.0-1.0); EOS # 0.4 10^3/uL (0.0-0.5); EOS % 5.8 % (0.0-3.0); HEMOGLOBIN 13.2 g/dl (12.0-15.5); LYMPH # 2.4 10^3/uL (1.5-5.0); LYMPH % 32.4 % (24.0-44.0); MEAN CORPUSCULAR HEMOGLOBIN 33.5 pg (27.0-33.0); MEAN CORPUSCULAR HGB CONC 33.8 g/dl (32.0-36.5); MONO # 0.5 10^3/uL (0.0-0.8); MONO % 7.3 % (2.0-8.0); NEUTROPHILS % 53.4 % (36.0-66.0); PLATELET COUNT, AUTOMATED 271 10^3/uL (150-450); RED BLOOD COUNT 3.94 10^6/uL (4.00-5.40); WHITE BLOOD COUNT 7.4 10^3/uL (4.0-10.0)
[2024-05-25 18:43] LABS: FERRITIN 58.7 NG/ML (7.3-270.7)
== END ==
LOC: M PLALAB 14:30
PROVIDERS: ATTEND Internal Medicine Hematology
DX: D64.9 Anemia, unspecified (principal)

== ENCOUNTER → 2024-06-15 | Outpatient (CLI) | payer OTHER | LOC: M PLALAB 15:48 | PROVIDERS: ATTEND Internal Medicine Hematology | DX: E03.9 Hypothyroidism, unspecified (principal) ==

== ENCOUNTER → 2024-11-24 | Outpatient (CLI) | payer OTHER ==
[2024-11-24 16:00] LABS: BASO # 0.1 10^3/uL (0.0-0.2); EOS # 0.6 10^3/uL (0.0-0.5); EOS % 7.9 % (0.0-3.0); HEMATOCRIT 42.8 % (36.0-47.0); HEMOGLOBIN 14.4 g/dl (12.0-15.5); LYMPH # 2.7 10^3/uL (1.5-5.0); LYMPH % 34.2 % (24.0-44.0); MEAN CORPUSCULAR HEMOGLOBIN 32.6 pg (27.0-33.0); MEAN CORPUSCULAR HGB CONC 33.6 g/dl (32.0-36.5); MEAN CORPUSCULAR VOLUME 96.8 fl (80.0-96.0); MONO # 0.7 10^3/uL (0.0-0.8); MONO % 8.4 % (2.0-8.0); NEUTROPHILS # 3.7 10^3/uL (1.5-8.5); NEUTROPHILS % 48.2 % (36.0-66.0); PLATELET COUNT, AUTOMATED 256 10^3/uL (150-450); RED BLOOD COUNT 4.42 10^6/uL (4.00-5.40); WHITE BLOOD COUNT 7.7 10^3/uL (4.0-10.0)
[2024-11-24 17:01] LABS: FERRITIN 25.4 NG/ML (7.3-270.7); TOTAL 25(OH) VITAMIN D 13.2 NG/ML (20.0-100.0)
[2024-11-24 17:02] LABS: THYROID STIMULATING HORMONE 3.457 uIU/ML (0.55-4.78)
== END ==
LOC: M PLALAB 12:13
PROVIDERS: ATTEND Internal Medicine Hematology
DX: D64.9 Anemia, unspecified (principal); E03.9 Hypothyroidism, unspecified; E55.9 Vitamin D deficiency, unspecified

== ENCOUNTER → 2024-11-24 | Outpatient (CLI) | payer OTHER | LOC: M RAD 11:33 | PROVIDERS: ATTEND Otolaryngology | DX: R59.0 Localized enlarged lymph nodes (principal); E07.89 Other specified disorders of thyroid ==

== ENCOUNTER → 2025-03-07 | Outpatient (CLI) | payer OTHER ==
[~2025-03-07] MED LIST changes: +PROHANCE 279.3MG/ML 15ML VIAL ONE; +PROHANCE 279.3MG/ML 5ML VIAL ONE
== END ==
LOC: M PLAIMG 08:22
PROVIDERS: ATTEND Otolaryngology
DX: D37.030 Neoplasm of uncertain behavior of the parotid salivary glands (principal)

== ENCOUNTER → 2025-05-11 | Outpatient (CLI) | payer OTHER ==
[~2025-05-11] MED LIST changes: +LAMO-18 PO; -LAMO25TA4 PO; +LURA60TA; -PROHANCE 279.3MG/ML 15ML VIAL ONE; -PROHANCE 279.3MG/ML 5ML VIAL ONE
== END ==
LOC: M RAD 12:03
PROVIDERS: ATTEND Otolaryngology
DX: E04.1 Nontoxic single thyroid nodule (principal)

== ENCOUNTER → 2025-05-19 | Outpatient (CLI) | payer OTHER ==
[2025-05-19 17:58] LABS: PLATELET COUNT, AUTOMATED 289 10^3/uL (150-450)
[2025-05-19 18:24] LABS: ALT/SGPT 14.0 U/L (7.0-40); AST/SGOT 16.0 U/L (<34); CALCIUM LEVEL 9.0 MG/DL (8.5-10.1); CARBON DIOXIDE LEVEL 29.0 MMOL/L (20-31); CHLORIDE LEVEL 103.0 MMOL/L (98-107); CHOLESTEROL LEVEL 196.0 MG/DL (<200); CHOLESTEROL RISK RATIO 3.18 (<5); CREATININE FOR GFR 0.81 MG/DL (0.55-1.30); GLOMERULAR FILTRATION RATE 89.5 (>58); LDL CHOLESTEROL 106.6 MG/DL (<100); NON-HDL-C 134.4 MG/DL; POTASSIUM SERUM 4.3 MMOL/L (3.5-5.1); SODIUM LEVEL 141.0 MMOL/L (136-145); TRIGLYCERIDES LEVEL 139.0 MG/DL (<150)
[2025-05-19 18:25] LABS: TOTAL 25(OH) VITAMIN D 22.7 NG/ML (20.0-100.0)
[2025-05-19 18:26] LABS: FREE T4 1.78 NG/DL (0.89-1.76); VITAMIN B12 LEVEL 713.0 PG/ML (211-911)
== END ==
LOC: M PLALAB 16:12
PROVIDERS: ATTEND Family Medicine
DX: E61.1 Iron deficiency (principal); D64.9 Anemia, unspecified; E53.8 Deficiency of other specified B group vitamins; E55.9 Vitamin D deficiency, unspecified; E03.9 Hypothyroidism, unspecified; Z13.6 Encounter for screening for cardiovascular disorders

== ENCOUNTER 2025-07-25 10:57 | Day surgery (SDC) | payer OTHER ==
[~2025-07-25] VITALS: Ht 170.2 cm; Wt 81.6 kg
[~2025-07-25 10:57] MED LIST changes: +FOLI1TAB11 PO; +LATU1TAB PO
[2025-07-25] MEDS ORDERED: GLYCOPYRROLATE INJ 0.2 MG/ML 2 ML VIAL As Ordered ONE (12:42)
[2025-07-25] MEDS ORDERED: LIDOCAINE 2% 100 MG/5 ML SDV (FOR ANES.) As Ordered ONE (12:43)
[2025-07-25 13:40] VITALS: BP 121/76; O2SAT 98
== END 2025-07-25 13:52 | disposition home or self-care (01) ==
LOC: M OPP 10:57
PROVIDERS: ATTEND Internal Medicine Gastroenterology
DX: Z12.11 Encounter for screening for malignant neoplasm of colon (principal); K64.0 First degree hemorrhoids; K57.30 Diverticulosis of large intestine without perforation or abscess without bleeding; K44.9 Diaphragmatic hernia without obstruction or gangrene; D50.9 Iron deficiency anemia, unspecified; Z88.2 Allergy status to sulfonamides; Z79.899 Other long term (current) drug therapy; F17.210 Nicotine dependence, cigarettes, uncomplicated
CPT/HCPCS: 43239; 45378; 88305; J1596